=== PATIENT | female | born 1940 ===

== ENCOUNTER 2018-08-27 09:11 | Outpatient (CLI) | payer MEDICARE, OTHER ==
[~2018-08-27 09:11] MED LIST: ATENOLOL100 MG ORAL; LIPITOR20 MG ORAL; LOSARTAN POTASS50 MG ORAL
--- NOTE | 2018-08-27 11:29 | Diagnostic Imaging Report ---
Indication: Cough Comparison: 03/22/2010 2 views of the chest obtained. Findings: There is a rounded density 4 to 5 cm in size at the left lung base not previously seen in 2010. This is in the left lower lobe. Evaluation with CT is recommended. The heart is borderline enlarged. Aorta is calcified. There is a PICC line present with the tip projected over the SVC. Mediastinal and hilar contours appear normal on this study. The bones are osteopenic. IMPRESSION: Left lower lobe mass. This requires further evaluation.
== END 2018-08-27 11:11 | disposition home or self-care (01) ==
LOC: RAD 09:11
DX: R05 Cough (principal); R91.8 Other nonspecific abnormal finding of lung field; M85.80 Other specified disorders of bone density and structure, unspecified site
CPT/HCPCS: 71046

== ENCOUNTER → 2018-10-20 | Outpatient (CLI) | payer MEDICARE, OTHER ==
--- NOTE | 2018-10-20 16:02 | Diagnostic Imaging Report ---
Indication: Cough Technique: 2 views of the chest Comparison: 08/27/2018 Findings: There is again demonstrated a mass in the left lower lobe, measuring 6 x 5 cm, slightly larger than the previous dimension of 5 x 4 cm. This has developed a central cavity with an air-fluid level. There is slight blunting of left costophrenic sulcus, pleural fluid likely. There is slight left hilar fullness. No definite infiltrates. Right lung and pleural space remain clear. Left arm port catheter is again demonstrated. Impression: Interim enlargement and cavitation of previously demonstrated left lower lobe lung mass. 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 Differential considerations in include cavitating infectious lesion, lung abscess Suspect small left pleural effusion Other findings as noted Findings discussed by phone with Dr. Skaggs at the time of interpretation
== END | disposition home or self-care (01) ==
LOC: RAD 12:40 → EDSTATUS 12:43
DX: R05 Cough (principal); J90 Pleural effusion, not elsewhere classified
CPT/HCPCS: 71046